=== PATIENT | female | born 1980 | race Hispanic/Latino ===

== ENCOUNTER 2017-06-28 19:48 | Emergency (ER) | payer OTHER ==
[2017-06-28] MEDS ORDERED: Multivitamin (MVI) 10 ML, Thiamine 100 MG, Folic Acid 1 MG in Dextrose 5%/0.45% NS 1,00... IV ONE (20:29)
--- NOTE | 2017-06-28 21:15 | ED PDOC ---
HPI: Psych/Substance Abuse Time Seen by Provider: 06/28/17 20:04 Chief Complaint (Nursing): Alcohol Ingestion ED Caveat: Acuity of Condition History Per: Patient, EMS, Family History/Exam Limitations: intoxication Onset/Duration Of Symptoms: Hrs Current Symptoms Are (Timing): Still Present Modifying Factor(s): Alcohol Additional Complaint(s): Patient was brought by police, EMS, and for possible intoxication, patient has a history of recovering alcoholism, states stress at home currently, states he was called at 7PM from someone who noticed his stumbling in public, appearing intoxicated. Patient denies all complaints, slurring words, not willing to cooperate with staff. Past Medical History Reviewed: Unable To Obtain Vital Signs: Last Vital Signs Temp 98.6 F 06/28/17 19:50 Pulse 106 H 06/28/17 19:50 Resp 18 06/28/17 19:50 BP 171/106 H 06/28/17 19:50 Pulse Ox 98 06/28/17 19:50 - Family History Family History: States: Unknown Family Hx - Allergies Allergies/Adverse Reactions: Allergies Allergy/AdvReac Type Severity Reaction Status Date / Time No Known Allergies Allergy Verified 06/28/17 19:54 Review of Systems Review Of Systems: ROS cannot be obtained secondary to pt's inabilty to answer questions. Physical Exam - Reviewed Nursing Documentation Reviewed: Yes Vital Signs Reviewed: Yes - Physical Exam Appears: Positive for: No Acute Distress. Negative for: Well (Intoxicated appearing, slurring speech, disheveled, covered in dirty) Head Exam: Negative for: ATRAUMATIC (Hematoma to R upper forehead, no laceration ) Skin: Positive for: Normal Color Eye Exam: Positive for: Normal appearance, EOMI, PERRL ENT: Positive for: Normal ENT Inspection Neck: Positive for: Normal, Painless ROM, Supple Cardiovascular/Chest: Positive for: Regular Rate, Rhythm Respiratory: Positive for: Normal Breath Sounds Gastrointestinal/Abdominal: Positive for: Normal Exam, Bowel Sounds, Soft. 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 Negative for: Oriented, Motor/Sensory Deficits - Laboratory Results Result Diagrams: 06/28/17 23:05 06/28/17 21:12 - ECG O2 Sat by Pulse Oximetry: 98 Pulse Ox Interpretation: Normal Medical Decision Making Medical Decision MakinPM A/P: Hx of former alcoholism presenting with possible intoxication -patient likely intoxicated at this time given slurred speech, unsteady gait -patient not able to make decisions about her care at this time, asked repeatedly by multiple members of staff to undress and submit to further testing , however patient became agitated, refusing; gave verbal consent to chemical and physical restraints to complete workup -will get labs, head CT, utox -will give banana bag -will re-eval for sobriety, crisis eval pending Time: [address] FINDINGS: Brain: See below. Ventricles: Ventricles are normal in size and configuration. There is no midline shift. There are no intra-axial or extra-axial mass lesions or areas of hemorrhage. There are no abnormal fluid collections. Espinosa-white differentiation is maintained. Bones: Cranial vault is intact. Soft tissues: There is a right frontal scalp hematoma. Sinuses: There is bilateral maxillary sinusitis. Ears and mastoids: Middle ears and mastoids are unremarkable Orbits: Orbital contents are unremarkable. IMPRESSION: Right frontal scalp hematoma, no acute intracranial abnormality, no fracture; sinusitis Dictated By: Mayra Jiang MD, MD Dictated Date/Time: 06/28/172240 Signed By: Mayra Jiang MD Date Signed: 2240 Transcribed By: YENI Transcribe Date/Time : 06/28/172240 MONIKA/MARGARETH 5AM Patient is now awake, alert, steady gait, HR 89, 99% on RA. Patient was cleared by Crisis with diagnosis of: alcohol use, by Dr. Thomas. Patient has steady gait. Of note, patient has multiple bruises in various healing patterns on extremeties that patient states she does not remember how she sustained. Police have been by to see patient multiple times to take statement. Disposition - Clinical Impression Clinical Impression: Alcohol abuse - Patient ED Disposition Is Patient to be Admitted: No - Disposition Referrals: Alcoholics Anonymous [Outside] Disposition: Transfer of Care Disposition Time: 05:09 Condition: IMPROVED Instructions: Alcohol Abuse and Alcoholism (DC) Forms: [employer] (Russian)
[2017-06-28 21:33] LABS: BLOOD UREA NITROGEN 8 mg/dl (7-17); CALCIUM 9.5 mg/dL (8.4-10.2); GFR AFRICAN-AMERICAN > 60; GFR NON-AFRICAN AMERICAN > 60
--- NOTE | 2017-06-28 22:41 | CT ---
EXAM: CT Head Without Intravenous Contrast EXAM DATE/TIME: 06/28/2017 8:29 PM CLINICAL HISTORY: 37 years old, female; Injury or trauma and signs and symptoms; Fall; Initial encounter; Concussion / head injury; Other: Found intoxicated; Additional info: Head injury, intox TECHNIQUE: Axial computed tomography images of the head/brain without intravenous contrast. All CT scans at this facility use one or more dose reduction techniques, viz.: automated exposure control; ma/kV adjustment per patient size (including targeted exams where dose is matched to indication; i.e. head); or iterative reconstruction technique. Coronal and sagittal reformatted images were created and reviewed. COMPARISON: There are no prior studies for comparison. FINDINGS: Brain: See below. Ventricles: Ventricles are normal in size and configuration. There is no midline shift. There are no intra-axial or extra-axial mass lesions or areas of hemorrhage. There are no abnormal fluid collections. Espinosa-white differentiation is maintained. Bones: Cranial vault is intact. Soft tissues: There is a right frontal scalp hematoma. Sinuses: There is bilateral maxillary sinusitis. Ears and mastoids: Middle ears and mastoids are unremarkable Orbits: Orbital contents are unremarkable. IMPRESSION: Right frontal scalp hematoma, no acute intracranial abnormality, no fracture; sinusitis
[2017-06-28 23:17] LABS: BASO % 0.6 % (0.0-2.0); EOS % 0.1 % (0.0-4.0); LYMPH # 0.7 K/uL (1.0-4.3); LYMPH % 8.4 % (20.0-40.0); MEAN CELL VOLUME 98.2 fl (81.0-99.0); MEAN CORPUSCULAR HEMOGLOBIN 33.5 pg (27.0-31.0); MEAN CORPUSCULAR HGB CONC 34.1 g/dL (33.0-37.0); MEAN PLATELET VOLUME 7.6 fl (7.2-11.7); MONO # 0.6 K/uL (0.0-0.8); MONO % 7.6 % (0.0-10.0); NEUT # 6.7 K/uL (1.8-7.0); NEUT % 83.3 % (50.0-75.0); NRBC % 0.1 % (0.0-0.0); PLATELET COUNT 267 K/uL (130-400); RBC 3.89 Mil/uL (3.80-5.20); RED CELL DISTRIBUTION WIDTH 14.2 % (11.5-14.5); WHITE BLOOD COUNT 8.1 K/uL (4.8-10.8)
[2017-06-29 00:53] LABS: BANDS 1 % (0-2); LYMPHOCYTE 7 % (20-50); MONOCYTE 4 % (0-10); NEUTROPHIL 88 % (42-75); PLATELET ESTIMATE NORMAL (NORMAL); TOTAL CELLS COUNTED 100
[2017-06-29 02:19] LABS: SQUAMOUS EPITHIAL 5 /hpf (0-5); URINE BACTERIA OCC (<OCC); URINE BILIRUBIN NEGATIVE (NEGATIVE); URINE BLOOD NEGATIVE (NEGATIVE); URINE CLARITY CLOUDY (Clear); URINE COLOR YELLOW (YELLOW); URINE GLUCOSE (UA) NEG (Normal); URINE HYALINE CAST 0-2 /hpf (0-2); URINE LEUKOCYTE ESTERASE TRACE Leu/uL (Negative); URINE PROTEIN 30 mg/dL (NEGATIVE); URINE UROBILINOGEN 0.2-1.0 mg/dL (0.2-1.0)
[2017-06-29 02:37] LABS: BARBITURATES, UR NEGATIVE (NEGATIVE); BENZODIAZEPINES, UR NEGATIVE (NEGATIVE); OPIATES, UR NEGATIVE (NEGATIVE); PHENCYCLIDINE, UR NEGATIVE (NEGATIVE)
[2017-06-29 05:24] VITALS: BP 125/73; PULSE 86; RESP 16; TEMP 98; O2SAT 100
== END 2017-06-29 05:22 | disposition home or self-care (01) ==
LOC: H.ER 19:48
DX: F10.20 Alcohol dependence, uncomplicated (principal); S00.03XA Contusion of scalp, initial encounter; W19.XXXA Unspecified fall, initial encounter; Y92.89 Other specified places as the place of occurrence of the external cause; J32.0 Chronic maxillary sinusitis; F10.10 Alcohol abuse, uncomplicated
CPT/HCPCS: 70450; 80048; 80320; 80324; 80329; 80345; 80346; 80349; 80353; 80358; 80361; 81003; 81025; 82948; 83992; 85025; 96360; 96361; 96372; 99285; J1630; J2060; J3411; J7042